=== PATIENT | female | born 1995 | race Hispanic/Latino ===

== ENCOUNTER 2017-11-27 20:55 | Emergency (ER) | payer MEDICAID, OTHER ==
[2017-11-27] MEDS ORDERED: LIDOCAINE 2%-EPI 1:200,000 20 ML VIAL IJ ONE (21:29)
== END 2017-11-27 22:07 | disposition home or self-care (01) ==
LOC: EDH 20:55
DX: L02.412 Cutaneous abscess of left axilla (principal); J45.909 Unspecified asthma, uncomplicated
CPT/HCPCS: 10061; 99284; J3490

== ENCOUNTER 2017-11-29 18:37 | Emergency (ER) | payer SELFPAY ==
[2017-11-29] MEDS ORDERED: BUPIVACAINE/PF 0.5% 30ML VIAL ONE (19:03)
[2017-11-29] MEDS ORDERED: HYDROCODONE/ACETAMINOPHEN 10/325 MG TAB ONE (19:04)
[2017-11-29] MEDS ORDERED: LIDOCAINE HCL 1% 20 ML VIAL ONE (19:04)
== END 2017-11-29 20:00 | disposition home or self-care (01) ==
LOC: EDH 18:37
DX: L02.412 Cutaneous abscess of left axilla (principal); J45.909 Unspecified asthma, uncomplicated
CPT/HCPCS: 10060; 99283; J3490

== ENCOUNTER 2017-12-07 20:34 | Emergency (ER) | payer SELFPAY ==
[2017-12-07] MEDS ORDERED: DEXAMETHASONE SOD PHOSPHATE 10MG/ML 1ML VIAL ONE (20:56)
[2017-12-07] MEDS ORDERED: DIPHENHYDRAMINE HCL 25 MG CAPSULE ONE (20:56)
[2017-12-07] MEDS ORDERED: FAMOTIDINE 20MG TAB 20 MG TAB ONE (20:56)
== END 2017-12-07 22:28 | disposition home or self-care (01) ==
LOC: EDH 20:34
DX: R21 Rash and other nonspecific skin eruption (principal); J45.909 Unspecified asthma, uncomplicated
CPT/HCPCS: 96372; 99283; J1100; Q0163

== ENCOUNTER 2018-09-05 23:14 | Emergency (ER) | payer SELFPAY ==
[2018-09-05] MEDS ORDERED: IPRATROPIUM/ALBUTEROL SULFATE 3 ML SOLUTION IH ONE (23:33)
== END 2018-09-06 00:29 | disposition home or self-care (01) ==
LOC: EDH 23:14
DX: J45.901 Unspecified asthma with (acute) exacerbation (principal)
CPT/HCPCS: 71045; 81025; 93005; 94640

== ENCOUNTER 2018-11-05 21:04 | Emergency (ER) | payer SELFPAY ==
[2018-11-05] MEDS ORDERED: LIDOCAINE HCL 1% 20 ML VIAL ONE (22:17)
== END 2018-11-05 22:38 | disposition home or self-care (01) ==
LOC: EDH 21:04
DX: L02.411 Cutaneous abscess of right axilla (principal); L73.2 Hidradenitis suppurativa; J45.909 Unspecified asthma, uncomplicated
CPT/HCPCS: 10061

== ENCOUNTER 2019-04-20 19:10 | Emergency (ER) | payer SELFPAY | END 2019-04-20 20:11 | disposition home or self-care (01) | LOC: EDH 19:10 | DX: M65.842 Other synovitis and tenosynovitis, left hand (principal); J45.909 Unspecified asthma, uncomplicated | CPT/HCPCS: 99281 ==

== ENCOUNTER 2021-06-10 17:10 | Inpatient (IN) | payer SELFPAY ==
[~2021-06-10] VITALS: Ht 157.5 cm; Wt 91.6 kg
[2021-06-10] MEDS: ZOSYN 3.375GM+NS 50ML 50 ML IV SCH (01:00)
[2021-06-10 17:44] LABS: BASOPHILS % (AUTO) 0.5 % (0.0-5.0); EOSINOPHILS % (AUTO) 0.7 % (0.0-8.0); HEMATOCRIT 39.8 % (36-48); LYMPHOCYTES % (AUTO) 16.9 % (21.0-51.0); MEAN CORPUSCULAR HEMOGLOBIN 27.3 pg (27.0-33.0); MEAN CORPUSCULAR HGB CONC 32.7 g/dL (32.0-36.0); MEAN CORPUSCULAR VOLUME 83.4 fL (79-99); NEUTROPHILS % (AUTO) 75.6 % (40.0-77.0); PLATELET COUNT (AUTO) 377 K/uL (130-400); RED BLOOD CELL COUNT(AUTO) 4.77 MIL/uL (4.00-5.50); RED CELL DISTRIBUTION WIDTH 12.9 % (11.0-15.5)
[2021-06-10 18:00] LABS: CREATININE 0.7 mg/dL (0.5-1.5); POTASSIUM 3.8 mmol/L (3.5-5.1)
[2021-06-10 18:04] LABS: ALBUMIN 3.5 g/dL (3.5-5.0); BILIRUBIN,TOTAL 0.5 mg/dL (0.2-1.0); TOTAL PROTEIN, SERUM 8.4 g/dL (6.0-8.3)
[2021-06-10] MEDS ORDERED: LIDOCAINE HCL 400MG/20ML VIAL ONE (20:29)
[2021-06-10 20:45] VITALS: BP 140/98
[2021-06-10] MEDS ORDERED: MORPHINE 4 MG SYG IV SCH (21:00)
[2021-06-10] MEDS ORDERED: VANCOMYCIN 1G VIAL IVPB SCH (21:30)
[2021-06-10] MEDS ORDERED: VANCOMYCIN PROTOCOL PER PHARMACY IV SCH (22:30)
[2021-06-10] MEDS ORDERED: 0.9%NACL 50ML 50 ML IV ONE (22:38)
[2021-06-10] MEDS ORDERED: VANCOMYCIN 1G/250ML KIT 250 ML IV ONE (22:42)
[2021-06-11] VITALS (10 sets, daily range): BP systolic 104–165; BP diastolic 62–88
[2021-06-11 07:37] LABS: BASOPHILS % (AUTO) 0.3 % (0.0-5.0); EOSINOPHILS % (AUTO) 0.8 % (0.0-8.0); HEMATOCRIT 37.1 % (36-48); LYMPHOCYTES % (AUTO) 19.3 % (21.0-51.0); MEAN CORPUSCULAR HEMOGLOBIN 27.1 pg (27.0-33.0); MEAN CORPUSCULAR HGB CONC 32.6 g/dL (32.0-36.0); MEAN CORPUSCULAR VOLUME 83.2 fL (79-99); MONOCYTES % (AUTO) 7.2 % (3.0-13.0); NEUTROPHILS % (AUTO) 71.9 % (40.0-77.0); PLATELET COUNT (AUTO) 341 K/uL (130-400); RED BLOOD CELL COUNT(AUTO) 4.46 MIL/uL (4.00-5.50); RED CELL DISTRIBUTION WIDTH 12.8 % (11.0-15.5); WHITE BLOOD COUNT (AUTO) 12.7 K/uL (4.8-10.8)
[2021-06-11 07:54] LABS: CREATININE 0.8 mg/dL (0.5-1.5); POTASSIUM 3.7 mmol/L (3.5-5.1)
[2021-06-11] MEDS: ZOSYN 3.375GM+NS 50ML 50 ML IV SCH ×2 (09:20→19:42)
[2021-06-11] MEDS ORDERED: COMPOUND IV REFRIGERATED 1 EACH IVSOLN MISC PRN (14:00)
[2021-06-11] MEDS ORDERED: VANCOMYCIN 1G 1.5 GM in 0.9% NACL 250ML 250 ML IV ONE (14:00)
[2021-06-11] MEDS ORDERED: ALBU2.5V2 IH (16:18)
[2021-06-11] MEDS: 0.9% NACL 250ML 250 ML IV SCH (22:43)
[2021-06-11] MEDS: VANCOMYCIN 750MG VIAL IVPB SCH (22:43)
[2021-06-12] VITALS (24 sets, daily range): BP systolic 107–142; BP diastolic 66–89
[2021-06-12] MEDS: 0.9% NACL 250ML 250 ML IV SCH ×3 (03:43→20:53)
[2021-06-12] MEDS: VANCOMYCIN 750MG VIAL IVPB SCH ×3 (03:43→20:53)
[2021-06-12] MEDS: ZOSYN 3.375GM+NS 50ML 50 ML IV SCH ×3 (05:49→20:50)
[2021-06-12 05:56] LABS: HEMATOCRIT 35.8 % (36-48); MEAN CORPUSCULAR HEMOGLOBIN 26.9 pg (27.0-33.0); MEAN CORPUSCULAR HGB CONC 32.1 g/dL (32.0-36.0); MEAN CORPUSCULAR VOLUME 83.8 fL (79-99); RED BLOOD CELL COUNT(AUTO) 4.27 MIL/uL (4.00-5.50); RED CELL DISTRIBUTION WIDTH 12.6 % (11.0-15.5); WHITE BLOOD COUNT (AUTO) 8.3 K/uL (4.8-10.8)
[2021-06-12 06:24] LABS: ALBUMIN 2.8 g/dL (3.5-5.0); BILIRUBIN,TOTAL 0.5 mg/dL (0.2-1.0); CREATININE 0.8 mg/dL (0.5-1.5); POTASSIUM 3.9 mmol/L (3.5-5.1)
[2021-06-12] MEDS ORDERED: CEFAZOLIN SODIUM 1 GM VIAL ONE (11:28)
[2021-06-12] MEDS ORDERED: ONDANSETRON 4MG INJ ONE (11:34)
[2021-06-12] MEDS ORDERED: DEXAMETHASONE SOD PHOSPHATE 10MG/ML 1ML VIAL ONE (11:34)
[2021-06-12] MEDS ORDERED: MIDAZOLAM HCL 1 MG/ML 2ML VIAL ONE (11:34)
[2021-06-12] MEDS ORDERED: LIDOCAINE PF 100MG/5ML (2%) SYRINGE 5ML ONE (11:34)
[2021-06-12] MEDS ORDERED: PROPOFOL 10 MG/ML 20ML VIAL IV ONE (11:35)
[2021-06-12] MEDS ORDERED: FENTANYL CITRATE PF 50 MCG/1 ML 2ML VIAL ONE ×2 (11:35→11:58)
[2021-06-12] MEDS ORDERED: MEPERIDINE-PF 25 MG/ML SYG ONE ×2 (11:42→12:56)
[2021-06-12] MEDS ORDERED: KETOROLAC 30MG VIAL (30MG/ML) ONE (12:55)
[2021-06-13] VITALS: BP 101/62
[2021-06-13 04:00] VITALS: BP 112/58
[2021-06-13] MEDS: 0.9% NACL 250ML 250 ML IV SCH (04:26)
[2021-06-13] MEDS: VANCOMYCIN 750MG VIAL IVPB SCH (04:26)
[2021-06-13 05:18] LABS: HEMATOCRIT 34.2 % (36-48); MEAN CORPUSCULAR HEMOGLOBIN 27.1 pg (27.0-33.0); MEAN CORPUSCULAR HGB CONC 32.7 g/dL (32.0-36.0); MEAN CORPUSCULAR VOLUME 82.8 fL (79-99); RED BLOOD CELL COUNT(AUTO) 4.13 MIL/uL (4.00-5.50); RED CELL DISTRIBUTION WIDTH 12.4 % (11.0-15.5); WHITE BLOOD COUNT (AUTO) 15.4 K/uL (4.8-10.8)
[2021-06-13 05:44] LABS: ALBUMIN 2.7 g/dL (3.5-5.0); BILIRUBIN,TOTAL 0.3 mg/dL (0.2-1.0); CREATININE 0.7 mg/dL (0.5-1.5); TOTAL PROTEIN, SERUM 7.1 g/dL (6.0-8.3)
[2021-06-13] MEDS: ZOSYN 3.375GM+NS 50ML 50 ML IV SCH (06:52)
[2021-06-13 08:02] VITALS: BP 99/55
== END 2021-06-13 11:25 | disposition home or self-care (01) | DRG 603 ==
LOC: EDH 17:10 → EDHIP 17:11 → 3DH 06-11 10:15
PROVIDERS: ADMIT Internal Medicine; ATTEND Internal Medicine
PROC: 0X950ZZ Drainage of Left Axilla, Open Approach (ICD-10-PCS; principal; 2021-06-12 11:40)
DX: L02.412 Cutaneous abscess of left axilla (principal); J45.909 Unspecified asthma, uncomplicated; L03.112 Cellulitis of left axilla; L73.2 Hidradenitis suppurativa; Z20.822 Contact with and (suspected) exposure to COVID-19
CPT/HCPCS: 36415; 80048; 80053; 80202; 85025; 85027; 87070; 87076; 87077; 87186; 87205; 87635; A4565; G0378; J0690; J1100; J1885; J2001; J2175; J2250; J2270; J2405; J2543; J2704; J3010; J3370; J3490; J7030; J7050

== ENCOUNTER 2021-10-27 19:41 | Emergency (ER) | payer SELFPAY ==
[~2021-10-27] VITALS: Ht 157.5 cm; Wt 102.1 kg
[~2021-10-27 19:41] MED LIST: ALBU2.5V2 IH
[2021-10-27] MEDS ORDERED: ACETAMINOPHEN 500 MG TABLET PO ONE (23:00)
[2021-10-27 23:18] LABS: APPEARANCE,URINE Clear (CLEAR); BILIRUBIN,URINE Negative (NEGATIVE); COLOR,URINE Yellow (YELLOW); GLUCOSE, URINE (UA) Negative (NEGATIVE); KETONES,URINE Negative (NEGATIVE); LEUKOCYTE ESTERASE ,URINE Trace (NEGATIVE); NITRATE,URINE Negative (NEGATIVE); OCCULT BLOOD,URINE Negative (NEGATIVE); PH,URINE 5.5 (5.0-8.0); PROTEIN,URINE Negative (NEGATIVE); UROBILINOGEN,URINE 0.2 mg/dL (0.2-1.0)
[2021-10-27 23:26] LABS: HCG,QUAL RESULT NEGATIVE (NEGATIVE)
[2021-10-27 23:30] LABS: BACTERIA,URINE Rare /HPF (None Seen); RBC,URINE 0-1 /HPF (0-1); SQUAMOUS EPITHELIAL CELL,UR Few /HPF (0-2); WBC,URINE 0-1 /HPF (0-1)
[2021-10-27] MEDS ORDERED: CYCL5TAB PO (23:57)
[2021-10-27] MEDS ORDERED: IBUP-2070 PO (23:57)
[2021-10-27] MEDS ORDERED: ACET-66 PO (23:57)
[2021-10-28 00:36] VITALS: BP 112/59
== END 2021-10-28 01:05 | disposition home or self-care (01) ==
LOC: EDH 19:41
DX: S06.0X1A Concussion with loss of consciousness of 30 minutes or less, initial encounter (principal); W01.10XA Fall on same level from slipping, tripping and stumbling with subsequent striking against unspecified object, initial encounter; Y93.89 Activity, other specified; Y92.89 Other specified places as the place of occurrence of the external cause; Y99.8 Other external cause status
CPT/HCPCS: 70450; 72125; 81001; 81025